=== PATIENT | male | born 1970 | race Caucasian/White ===

== ENCOUNTER 2021-11-13 07:27 | Observation (INO) | payer OTHER ==
[~2021-11-13] VITALS: Ht 175.3 cm; Wt 96.2 kg
[2021-11-13 08:17] LABS: HEMOGLOBIN 12.8 gm/dl (14.0-17.5); RED BLOOD COUNT 4.16 M/UL (4.20-5.50); WHITE BLOOD COUNT 8.1 K/UL (4.5-11.0)
[2021-11-14 02:26] LABS: HEMOGLOBIN 13.9 gm/dl (14.0-17.5); RED BLOOD COUNT 4.52 M/UL (4.20-5.50)
[2021-11-14 02:44] LABS: BUN/CREATININE RATIO 19 (0-10)
[2021-11-14 03:05] LABS: WHITE BLOOD COUNT 11.3 K/UL (4.5-11.0)
[2021-11-14] MEDS ORDERED: NORVASC10 MG PO (17:10)
[2021-11-14] MEDS ORDERED: CHLORPROMAZINE50 MG PO (17:10)
[2021-11-14] MEDS ORDERED: HYDROXYZINE HCL25 MG PO (17:11)
[2021-11-14] MEDS ORDERED: PROZAC20 MG PO (17:11)
[2021-11-14] MEDS ORDERED: CLARITIN10 MG PO (17:12)
[2021-11-14] MEDS ORDERED: ROBAXIN 750 MG750 MG PO (17:13)
[2021-11-14] MEDS ORDERED: PROTONIX40 MG PO (17:13)
[2021-11-15 04:12] LABS: HEMOGLOBIN 14.9 gm/dl (14.0-17.5); RED BLOOD COUNT 4.79 M/UL (4.20-5.50); WHITE BLOOD COUNT 9.7 K/UL (4.5-11.0)
--- NOTE | 2021-11-16 05:28 | NUR ---
PATIENT HAS BEEN NPO SINCE MIDNIGHT FOR STRESS TEST ON 11/16
[2021-11-16] MEDS ORDERED: LOPRESSOR 50 MG50 MG PO (09:01)
[2021-11-16] MEDS ORDERED: LISINOPRIL10 MG PO (16:30)
[2021-11-16] MEDS ORDERED: LIPITOR40 MG PO (16:30)
[2021-11-16] MEDS ORDERED: ASPIRIN EC81 MG PO (16:31)
[2021-11-16] MEDS ORDERED: CARVEDILOL25 MG PO (16:39)
== END 2021-11-16 16:55 | disposition home or self-care (01) ==
LOC: ER1 07:27 → M/S 13:44 → CDU 13:44 → M/S 14:22
PROVIDERS: Physician Assistant; Physician Assistant Medical; ADMIT Internal Medicine
DX: R07.89 Other chest pain (principal); Z20.822 Contact with and (suspected) exposure to COVID-19; E11.9 Type 2 diabetes mellitus without complications; I16.1 Hypertensive emergency; F15.10 Other stimulant abuse, uncomplicated; E78.5 Hyperlipidemia, unspecified; I10 Essential (primary) hypertension; R00.0 Tachycardia, unspecified; N17.9 Acute kidney failure, unspecified; R77.8 Other specified abnormalities of plasma proteins; K21.9 Gastro-esophageal reflux disease without esophagitis; F17.210 Nicotine dependence, cigarettes, uncomplicated; Z79.899 Other long term (current) drug therapy
CPT/HCPCS: ECHO; 36415; 71045; 78452; 80048; 80053; 80307; 81001; 82550; 82553; 83735; 84484; 85025; 85027; 93005; 93017; 93306; 96374; 96376; 99285; A9502; G0378; J0360; J2785; Q0161; U0002

== ENCOUNTER 2021-11-20 04:58 | Emergency (ER) | payer OTHER ==
[~2021-11-20 04:58] MED LIST: ASPIRIN EC81 MG PO; CARVEDILOL25 MG PO; CHLORPROMAZINE50 MG PO; CLARITIN10 MG PO; HYDROXYZINE HCL25 MG PO; LIPITOR40 MG PO; LISINOPRIL10 MG PO; LOPRESSOR 50 MG50 MG PO; NORVASC10 MG PO; PROTONIX40 MG PO; PROZAC20 MG PO; ROBAXIN 750 MG750 MG PO
[2021-11-20 06:38] LABS: HEMOGLOBIN 14.3 gm/dl (14.0-17.5); RED BLOOD COUNT 4.71 M/UL (4.20-5.50); WHITE BLOOD COUNT 11.2 K/UL (4.5-11.0)
[2021-11-20 07:27] LABS: BUN/CREATININE RATIO 13 (0-10)
[2021-11-20] MEDS ORDERED: ZESTRIL20 MG PO (11:36)
[2021-11-20] MEDS ORDERED: COREG 25MG TAB25 MG PO (11:36)
== END 2021-11-20 21:05 | disposition admitted as inpatient to this hospital (09) ==
LOC: ER1 04:58
PROVIDERS: Physician Assistant
DX: I10 Essential (primary) hypertension (principal); R45.851 Suicidal ideations; Z20.822 Contact with and (suspected) exposure to COVID-19
CPT/HCPCS: 71045; 80053; 80307; 81001; 82550; 82553; 84484; 85025; 87086; 93005; 96374; 96375; 99285; J0360; U0002